=== PATIENT | female | born 1950 | race African-American/Black ===

== ENCOUNTER 2017-11-23 09:48 | Emergency (ER) | payer MEDICARE ==
[~2017-11-23] VITALS: Ht 161.3 cm; Wt 72.1 kg
[~2017-11-23 09:48] MED LIST: CLOTRIMAZOLE15 GM TOPIC; DEPAKOTE250 MG PO; DEPAKOTE500 MG PO; HYDROCORTISO1 APPLIC TOPIC; NORCO 5-325 TA1 EACH PO
[2017-11-23 10:10] VITALS: BP 148/79
[2017-11-23] MEDS ORDERED: NORCO 5-325 TA1 EACH ORAL (10:10)
[2017-11-23 10:37] VITALS: BP 148/79
--- NOTE | 2017-11-23 11:26 | Emergency Room Report ---
History of Present Illness General Chief Complaint: Back Pain-No Injury Source: Patient, Medical Record Present Illness HPI Patient reports that she had a slip and fall in the shower about 7 days ago she has had continued discomfort to the left lower back area she reports that she has had previous sciatica Is on chronic pain medication however was not able to see her pain management physician Denies any focal deficit patient ambulate with a walker and this is a usual presentation Denies any abdominal pain denies any neuropathy Denies any bowel or urinary incontinence Allergies: Coded Allergies: TETRACYCLINE (Verified Allergy, Unknown, 05/09/08) Patient History Past Medical History: see triage record Pertinent Family History: none Reviewed Nursing Documentation: PMH: Agreed; PSxH: Agreed Nursing Documentation-PMH Past Medical History: No History, Except For Hx Cardiac Problems: No - [place] Hx Hypertension: Yes Hx Asthma: Yes Hx Diabetes: Yes Hx Neurological Problems: Yes Hx Seizures: Yes Review of Systems All Other Systems: negative except mentioned in HPI Physical Exam Vital Signs Date Time Temp Pulse Resp B/P (MAP) Pulse Ox O2 Delivery O2 Flow Rate FiO2 11/23/17 09:52 98.4 72 16 148/79 96 Room Air 98.4 Sp02 EP Interpretation: reviewed, normal General Appearance: well appearing, no apparent distress Head: normocephalic, atraumatic Eyes: bilateral eye PERRL, bilateral eye EOMI ENT: hearing grossly normal, normal pharynx Neck: full range of motion, supple Respiratory: lungs clear Cardiovascular #1: regular rate, rhythm Gastrointestinal: non tender, soft Musculoskeletal: other - Patient has discomfort on palpation of the left posterior superior iliac crest midline is nontender no focal deficit, Neurologic: alert, oriented x3, responsive Skin: normal color, no rash Lymphatic: no adenopathy Medical Decision Making Diagnostic Impression: Primary Impression: Back pain ER Course Multiple differentials considered Patient at this time feels that she does not require imaging Patient was asking regarding prescription for home Given the lack of any neurological deficits I feel this is appropriate initial attempt and patient will be discharged for close follow-up Last Vital Signs Date Time Temp Pulse Resp B/P (MAP) Pulse Ox O2 Delivery O2 Flow Rate FiO2 11/23/17 10:37 98.4 16 148/79 96 Room Air 98.4 11/23/17 09:52 72 Status: improved Disposition: HOME, SELF-CARE Condition: Stable Scripts Hydrocodone Bit/Acetaminophen 5-325* (NORCO 5-325*) 1 Each Tablet 1 TAB ORAL Q8HR PRN for For Pain, #10 TAB 0 Refills Prov: Kaykay Fletcher DO 11/23/17 Referrals: NON PHYSICIAN (PCP) Patient Instructions: Sciatica, Back Pain, Adult Additional Instructions: Patient is provided with the discharge instructions notified to follow up with primary doctor in the next 2-3 days otherwise return to the er with any worsening symptoms. Please note that this report is being documented using marshallindex technology. This can lead to erroneous entry secondary to incorrect interpretation by the dictating instrument. Kaykay Fletcher DO Nov 23, 2017 11:25
== END 2017-11-23 10:37 | disposition home or self-care (01) ==
LOC: EMR 10:15
DX: M54.5 Low back pain (principal); I10 Essential (primary) hypertension; E11.9 Type 2 diabetes mellitus without complications; J45.909 Unspecified asthma, uncomplicated; I25.2 Old myocardial infarction
CPT/HCPCS: 99282

== ENCOUNTER 2017-12-20 14:53 | Emergency (ER) | payer MEDICARE ==
[~2017-12-20] VITALS: Ht 160 cm; Wt 74.4 kg
[~2017-12-20 14:53] MED LIST changes: +NORCO 5-325 TA1 EACH ORAL
[2017-12-20] MEDS ORDERED: Ketorolac 30mg Inj IM ONE (16:15)
[2017-12-20 16:45] LABS: ANION GAP 9 mmol/L (5-15); BLOOD UREA NITROGEN 20 mg/dL (7-18); CALCIUM 9.2 MG/DL (8.5-10.1); CARBON DIOXIDE 29 MMOL/L (21-32); CHLORIDE 105 MMOL/L (98-107); CREATININE 1.1 MG/DL (0.55-1.30); POTASSIUM 4.1 MMOL/L (3.5-5.1); SODIUM 142 MMOL/L (136-145)
[2017-12-20 16:48] LABS: BASOPHILS % (AUTO) 0.9 % (0.0-2.0); EOSINOPHILS % (AUTO) 0.5 % (0.0-3.0); HEMOGLOBIN 12.8 G/DL (12.0-16.0); LYMPHOCYTES % (AUTO) 25.7 % (20.0-45.0); MEAN CORPUSCULAR VOLUME 82 FL (80-99); MONOCYTES % (AUTO) 3.7 % (1.0-10.0); NEUTROPHILS % (AUTO) 69.2 % (45.0-75.0); PLATELET COUNT 314 K/UL (150-450); RED BLOOD COUNT 4.63 M/UL (4.20-5.40); RED CELL DISTRIBUTION WIDTH 12.7 % (11.6-14.8); WHITE BLOOD COUNT 10.6 K/UL (4.8-10.8)
[2017-12-20 16:51] LABS: ALANINE AMINOTRANSFERASE 18 U/L (12-78); ALBUMIN 3.7 G/DL (3.4-5.0); ALBUMIN/GLOBULIN RATIO 0.7 (1.0-2.7); ALKALINE PHOSPHATASE 84 U/L (46-116); ASPARTATE AMINO TRANSFERASE 22 U/L (15-37); BILIRUBIN,TOTAL 0.3 MG/DL (0.2-1.0)
[2017-12-20 17:03] LABS: CKMB 2.7 NG/ML (0.0-3.6)
[2017-12-20] MEDS ORDERED: Bacitracin Oint UD TOPIC ONE (17:30)
--- NOTE | 2017-12-20 17:31 | Emergency Room Report ---
History of Present Illness General Chief Complaint: Back Injury Source: Patient Present Illness HPI 67-year-old female presents to the emergency department complaining of exacerbation of her chronic back pain that she reports is 10 out of 10 in severity with radiation down the left leg. Patient states that her pain was exacerbated upon falling several days ago where she landed on her anterior knees and shins and sustained a abrasion to the left anterior bloom. Patient also reports that she believes she's had 2 seizures recently one being this morning. Patient reports that she feels tenderness where she made better tongue. Patient states that she is currently taking some tramadol with no relief of her symptoms. She states that she takes Depakote twice a day dentures seizures. She reports that she had some dizziness 2 days ago but denies dizziness today. Denies numbness tingling or loss of sensation or gross motor movements of the extremities, incontinence of bowel or bladder. Denies CP , Palpitations, AMS, Changes in Vision, weakness or a sudden severe headache. Allergies: Coded Allergies: TETRACYCLINE (Verified Allergy, Unknown, 05/09/08) Patient History Past Medical History: see triage record, seizures, other - chronic back pain with bilateral sciatica Past Surgical History: none Pertinent Family History: none Now: No Reviewed Nursing Documentation: PMH: Agreed; PSxH: Agreed Nursing Documentation-PMH Past Medical History: No History, Except For Hx Cardiac Problems: No - [place] Hx Hypertension: Yes Hx Pacemaker: No Hx Asthma: Yes Hx COPD: No Hx Diabetes: No Hx Cancer: No Hx Gastrointestinal Problems: No Hx Dialysis: No History Of Psychiatric Problem: Yes - Anxiety Hx Neurological Problems: No Hx Cerebrovascular Accident: Yes - Last Seizure: 2 Days ago Hx Seizures: Yes Review of Systems All Other Systems: negative except mentioned in HPI Physical Exam Vital Signs Date Time Temp Pulse Resp B/P (MAP) Pulse Ox O2 Delivery O2 Flow Rate FiO2 12/20/17 15:02 98.4 67 14 145/81 99 Room Air Sp02 EP Interpretation: reviewed, normal General Appearance: no apparent distress, alert, GCS 15, non-toxic Head: normocephalic, atraumatic Eyes: bilateral eye normal inspection, bilateral eye PERRL, bilateral eye EOMI ENT: hearing grossly normal, normal voice, other - no visible oral trauma. Neck: full range of motion, no bony tend Respiratory: chest non-tender, lungs clear, normal breath sounds, speaking full sentences Cardiovascular #1: regular rate, rhythm Gastrointestinal: non tender, soft Rectal: deferred Genitourinary: normal inspection, no CVA tenderness Musculoskeletal: back normal, gait/station normal, normal range of motion, tender - Mild Tenderness to palpation to paraspinal muscles of the lower back without midline tenderness. Neurologic: alert, oriented x3, responsive, motor strength/tone normal, sensory intact, normal gait, speech normal, other - no nystagmus., normal motor strength/tone, grossly normal Psychiatric: judgement/insight normal Skin: normal color, no rash, warm/dry, well hydrated, abrasions - healing abrasion anterior left bloom, no signs of infection Medical Decision Making PA Attestation Dr. Aguila is my supervising Physician whom patient management has been discussed with. Diagnostic Impression: Primary Impression: Acute exacerbation of chronic low back pain Additional Impressions: History of seizure Contusion Qualified Codes: S80.12XA - Contusion of left lower leg, initial encounter Abrasion ER Course 67-year-old female presents to the emergency department complaining of exacerbation of her chronic back pain that she reports is 10 out of 10 in severity with radiation down the left leg. Patient states that her pain was exacerbated upon falling several days ago where she landed on her anterior knees and shins and sustained a abrasion to the left anterior bloom. Patient also reports that she believes she's had 2 seizures recently one being this morning. Patient reports that she feels tenderness where she made better tongue. Patient states that she is currently taking some tramadol with no relief of her symptoms. She states that she takes Depakote twice a day dentures seizures. She reports that she had some dizziness 2 days ago but denies dizziness today. Denies numbness tingling or loss of sensation or gross motor movements of the extremities, incontinence of bowel or bladder. Denies CP , Palpitations, AMS, Changes in Vision, weakness or a sudden severe headache. Ddx considered: epidural abscess, fracture, sprain/strain, meningitis, spinal chord injury, sciatica, cauda equina, seizure, cardiac ideology just to name a few Vital signs reviewed and are WNL during ED visit. Pt. is afebrile with no signs of infection No saddle anesthesia noted, Pt. denies incontinence Neurovascular is intact ROM is limited due to pain Mild Tenderness to palpation to paraspinal muscles of the lower back without midline tenderness. she is ambulatory, mild tenderness to the anterior bloom with healing abrasion no bruising noted -Pt declines imaging as she does not feel she has fractures and is worried about the cost. pt reports she walked for hours yesterday and today. ORDERS: - CBC, CMP: WNL -Depakote Level: 40 (low) -Troponin: WNL -CK: Unremarkable -EKG: sinus bradycardia no ST changes -AccuStick check INTERVENTIONS: - 20mg IM Toradol -Lidoderm Patch TP -250mg Depakote d/w patient that she needs to discontinue use of tramadol as this can lower the threshold for seizures D/W Pt. that for further pain management is it recommended to consult PCP or a Chronic Pain management doctor. A provider who can safely prescribe controlled substances with close follow up. DISCHARGE: At this time pt. is stable for d/c to home. Will provide printed patient care instructions, and any necessary prescriptions. Care plan and follow up instructions have been discussed with the patient prior to discharge. Labs Test 12/20/17 16:15 White Blood Count 10.6 K/UL (4.8-10.8) Red Blood Count 4.63 M/UL (4.20-5.40) Hemoglobin 12.8 G/DL (12.0-16.0) Hematocrit 38.0 % (37.0-47.0) Mean Corpuscular Volume 82 FL (80-99) Mean Corpuscular Hemoglobin 27.6 PG (27.0-31.0) Mean Corpuscular Hemoglobin Concent 33.7 G/DL (32.0-36.0) Red Cell Distribution Width 12.7 % (11.6-14.8) Platelet Count 314 K/UL (150-450) Mean Platelet Volume 5.8 FL (6.5-10.1) Neutrophils (%) (Auto) 69.2 % (45.0-75.0) Lymphocytes (%) (Auto) 25.7 % (20.0-45.0) Monocytes (%) (Auto) 3.7 % (1.0-10.0) Eosinophils (%) (Auto) 0.5 % (0.0-3.0) Basophils (%) (Auto) 0.9 % (0.0-2.0) Sodium Level 142 MMOL/L (136-145) Potassium Level 4.1 MMOL/L (3.5-5.1) Chloride Level 105 MMOL/L (98-107) Carbon Dioxide Level 29 MMOL/L (21-32) Anion Gap 9 mmol/L (5-15) Blood Urea Nitrogen 20 mg/dL (7-18) Creatinine 1.1 MG/DL (0.55-1.30) Estimat Glomerular Filtration Rate > 60 mL/min (>60) Glucose Level 87 MG/DL (74-106) Calcium Level 9.2 MG/DL (8.5-10.1) Total Bilirubin 0.3 MG/DL (0.2-1.0) Aspartate Amino Transf (AST/SGOT) 22 U/L (15-37) Alanine Aminotransferase (ALT/SGPT) 18 U/L (12-78) Alkaline Phosphatase 84 U/L (46-116) Total Creatine Kinase 232 U/L (26-308) Creatine Kinase MB 2.7 NG/ML (0.0-3.6) Creatine Kinase MB Relative Index 1.1 Troponin I 0.000 ng/mL (0.000-0.056) Total Protein 8.9 G/DL (6.4-8.2) Albumin 3.7 G/DL (3.4-5.0) Globulin 5.2 g/dL Albumin/Globulin Ratio 0.7 (1.0-2.7) Valproic Acid (Depakene) Level 40 MCG/ML (50-100) EKG Diagnostic Results EP Interpretation: Dr. Aguila Rate: bradycardiac - 53 Rhythm: NSR ST Segments: no acute changes ASA given to the pt in ED: No PA Scribe Text This Interpretation was scribed by EMILIANA Bar. Last Vital Signs Date Time Temp Pulse Resp B/P (MAP) Pulse Ox O2 Delivery O2 Flow Rate FiO2 12/20/17 15:02 98.4 67 14 145/81 99 Room Air Disposition: HOME, SELF-CARE Condition: Stable Scripts Acetaminophen* (TYLENOL EXTRA STRENGTH*) 500 Mg Tablet 500 MG ORAL Q6H, #20 TAB 0 Refills Prov: Chantal Bar 12/20/17 Bacitracin/Polymyxin B Sulfate (BACITRACIN-POLYMYXIN OINTMENT) 28.35 Gm Oint...g. 1 APPLIC TP BID, #28.3 GM Prov: Chantal Bar 12/20/17 Methocarbamol* (ROBAXIN-750*) 750 Mg Tablet 750 MG PO QID for 7 Days, #28 TAB 0 Refills Prov: Chantal Bar 12/20/17 Referrals: Kyle Simon MD (PCP) Patient Instructions: Abrasion, Puyy-aw-Anty, Back Pain, Adult, Contusion, Easy -to-Read Additional Instructions: Take medications as directed. Follow up with a Primary Care Provider in 3-5 days, even if your symptoms have resolved. --Please review list of primary care clinics, if you do not already have a primary care provider Return sooner to ED if new symptoms occur, or current symptoms become worse. Do not drink alcohol, drive, or operate heavy machinery while taking Robaxin ( Muscle Relaxers) as this may cause drowsiness. - Please note that this Emergency Department Report was dictated using Intoloopcurriculum coach technology software, occasionally this can lead to erroneous entry secondary to interpretation by the dictation equipment. Chantal Bar Dec 20, 2017 17:31
[2017-12-20] MEDS ORDERED: BACITRACIN-P28.35 GM TP (17:33)
[2017-12-20] MEDS ORDERED: ROBAXIN-750750 MG PO (17:33)
[2017-12-20] MEDS ORDERED: TYLENOL EXTRA500 MG ORAL (17:33)
[2017-12-20 17:43] VITALS: BP 135/79
[2017-12-20 17:47] VITALS: BP 135/79
--- NOTE | 2017-12-22 16:39 | Cardiology Report ---
APPROVED REPORT EKG Measurement Heart [id number] Sinus bradycardia Possible Left atrial enlargement Left ventricular hypertrophy Nonspecific T wave abnormality Abnormal ECG
== END 2017-12-20 17:47 | disposition home or self-care (01) ==
LOC: EMR 16:49
DX: G89.29 Other chronic pain (principal); M54.9 Dorsalgia, unspecified; I10 Essential (primary) hypertension; R56.9 Unspecified convulsions; Z86.73 Personal history of transient ischemic attack (TIA), and cerebral infarction without residual deficits; S80.12XA Contusion of left lower leg, initial encounter; W18.30XA Fall on same level, unspecified, initial encounter; Y93.9 Activity, unspecified; Y92.9 Unspecified place or not applicable; Y99.9 Unspecified external cause status
CPT/HCPCS: 36415; 80053; 80164; 82550; 82553; 82962; 84484; 85025; 93005; 96372; 99284; J1885

== ENCOUNTER → 2018-02-15 | Emergency (ER) | payer MEDICARE ==
[~2018-02-15] VITALS: Ht 160 cm; Wt 72.6 kg
[~2018-02-15] MED LIST changes: +BACITRACIN-P28.35 GM TP; +ROBAXIN-750750 MG PO; +TYLENOL EXTRA500 MG ORAL; +VALPROIC ACID250 MG PO
[2018-02-15 14:00] VITALS: BP 165/88
--- NOTE | 2018-02-15 14:00 | NUR ---
ED Nurse Note: pt walked in ED for medication refill. Pt states she takes Valporic Acid 250mg po bid. PA at the bedside, pt aa&ox4, gcs=15, skin warm and dry, resp even and unlabored, ambulatory. pt given sandwich and drink , verified with PA prior to providing pt meal.
--- NOTE | 2018-02-15 14:12 | Emergency Room Report ---
History of Present Illness General Chief Complaint: Medication Refill Source: Medical Record Present Illness HPI 67-year-old female presents to the emergency department complaining of needing medication refill. Has been out of her medication for 2 days. Patient reports that she has been taking valproic acid twice a day for many years for history of seizures. Patient also reports history of sciatica. She denies recent trauma or fall but she is also requesting some medications for this as well. Patient sates that she fell several years ago and has had her symptoms ever since and she is evaluated regularly with her pain management doctor. Last seizure 3 years ago. Denies numbness tingling or loss of sensation or gross motor movements of the extremities, incontinence of bowel or bladder. Denies CP , Palpitations, LOC, AMS, dizziness, Changes in Vision, weakness or a sudden severe headache. Denies pain at this time. Allergies: Coded Allergies: TETRACYCLINE (Verified Allergy, Unknown, 05/09/08) Patient History Past Medical History: see triage record Past Surgical History: none Pertinent Family History: none Now: No Reviewed Nursing Documentation: PMH: Agreed; PSxH: Agreed Nursing Documentation-PMH Hx Cardiac Problems: No - [place] Hx Hypertension: Yes Hx Pacemaker: No Hx Asthma: Yes Hx COPD: No Hx Diabetes: No Hx Cancer: No Hx Gastrointestinal Problems: No Hx Dialysis: No Hx Neurological Problems: No Hx Cerebrovascular Accident: Yes - Last Seizure: 2 Days ago Hx Seizures: Yes Review of Systems All Other Systems: negative except mentioned in HPI Physical Exam Vital Signs Date Time Temp Pulse Resp B/P (MAP) Pulse Ox O2 Delivery O2 Flow Rate FiO2 02/15/18 13:54 98.4 60 16 165/88 96 Room Air Sp02 EP Interpretation: reviewed, normal General Appearance: no apparent distress, alert, GCS 15, non-toxic Head: normocephalic, atraumatic Eyes: bilateral eye normal inspection, bilateral eye PERRL ENT: hearing grossly normal, normal voice Neck: full range of motion Respiratory: lungs clear, normal breath sounds, speaking full sentences Cardiovascular #1: regular rate, rhythm Musculoskeletal: back normal, gait/station normal, normal range of motion, non- tender Neurologic: alert, oriented x3, responsive, motor strength/tone normal, sensory intact, speech normal, grossly normal Psychiatric: judgement/insight normal Skin: normal color, no rash, warm/dry, well hydrated Lymphatic: no adenopathy Medical Decision Making PA Attestation Dr. Fletcher is my supervising Physician whom patient management has been discussed with. Diagnostic Impression: Primary Impression: Encounter for medication refill Additional Impression: Seizure disorder ER Course 67-year-old female presents to the emergency department complaining of needing medication refill. Has been out of her medication for 2 days. Patient reports that she has been taking valproic acid twice a day for many years for history of seizures. Patient also reports history of sciatica. She denies recent trauma or fall but she is also requesting some medications for this as well. Patient sates that she fell several years ago and has had her symptoms ever since and she is evaluated regularly with her pain management doctor. Last seizure 3 years ago. Denies numbness tingling or loss of sensation or gross motor movements of the extremities, incontinence of bowel or bladder. Denies CP , Palpitations, LOC, AMS, dizziness, Changes in Vision, weakness or a sudden severe headache. Denies pain at this time. Ddx considered but are not limited to: acute psychosis, danger to self or others , drug seeking, OD, urgent need for medication refill request, non -urgent medication refill request just to name a few. Vital signs: are WNL, pt. is afebrile H&PE are most consistent with non- urgent need for medication refill. Pt. does not have evidence to suggest high probability of danger to self or others. pt. is Alert, Oriented, and able to make decisions. ORDERS: none required at this time, the diagnosis is clinical ED INTERVENTIONS: None required at this time. -Patient is given multiple resources for nonurgent psychiatric medication management such as urgent care. Discussed with patient that this is a medication that is not normally prescribed by an emergency department and therefore medication refill and management needs to be performed by an appropriate provider. DISCHARGE: At this time pt. is stable for d/c to home. Will provide printed patient care instructions, and any necessary prescriptions. Care plan and follow up instructions have been discussed with the patient prior to discharge. Last Vital Signs Date Time Temp Pulse Resp B/P (MAP) Pulse Ox O2 Delivery O2 Flow Rate FiO2 02/15/18 13:54 98.4 60 16 165/88 96 Room Air Disposition: HOME, SELF-CARE Condition: Stable Scripts Methocarbamol* (ROBAXIN-750*) 750 Mg Tablet 750 MG PO TID for 7 Days, #21 TAB 0 Refills Prov: Chantal Bar 02/15/18 Valproic Acid (VALPROIC ACID) 250 Mg Capsule 250 MG PO Q12HR, #30 CAP Prov: Chantal Bar 02/15/18 Patient Instructions: Medicine Refill at the Emergency Department Additional Instructions: Take medications as directed. Follow up with a Primary Care Provider in 3-5 days, even if your symptoms have resolved. --Please review list of primary care clinics, if you do not already have a primary care provider Return sooner to ED if new symptoms occur, or current symptoms become worse. Do not drink alcohol, drive, or operate heavy machinery while taking Robaxin as this may cause drowsiness. - Please note that this Emergency Department Report was dictated using Vubiquityclient service associate technology software, occasionally this can lead to erroneous entry secondary to interpretation by the dictation equipment. Chantal Bar Feb 15, 2018 14:12
[2018-02-15 14:20] VITALS: BP 156/88
--- NOTE | 2018-02-15 14:21 | NUR ---
ED Nurse Note: pt discharge instruction provided w/ prescription, pt education done via discussion and handout, pt advised to follow up w/ pcp 2-3days, pt verbalized understanding and agrees with plan, pt wrist band removed, pt ambulatory w/ steady gait, vss, all belongings left w/ pt.
== END | disposition home or self-care (01) ==
LOC: EMR 14:14
DX: Z76.0 Encounter for issue of repeat prescription (principal); G40.909 Epilepsy, unspecified, not intractable, without status epilepticus; I10 Essential (primary) hypertension; I25.2 Old myocardial infarction; Z86.73 Personal history of transient ischemic attack (TIA), and cerebral infarction without residual deficits; Z88.1 Allergy status to other antibiotic agents
CPT/HCPCS: 99282

== ENCOUNTER 2018-05-03 11:00 | Emergency (ER) | payer MEDICARE ==
[~2018-05-03] VITALS: Ht 160 cm; Wt 75.7 kg
--- NOTE | 2018-05-03 11:20 | NUR ---
ED Nurse Note: Patient walked into Ed c/o sciatic nerve pain on the left lower posterior side for 1 week. patient is alert and awake x4 in no acute distress.
[2018-05-03] MEDS ORDERED: Methocarbamol 500mg tab ORAL ONE (11:45)
[2018-05-03] MEDS ORDERED: Ketorolac 30mg Inj IM ONE (11:45)
--- NOTE | 2018-05-03 11:51 | NUR ---
ED Nurse Note: RN administered Toradol IM injection to right deltoid muscle per patient's request. RN attempted to administer it to deep muscle, but patient states 'I always get it in my arm'. Per patient, patient received the injection previously. Tolerated the procedure well.
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
--- NOTE | 2018-05-03 12:20 | NUR ---
ED Nurse Note: notified Dr. Somers that patient said "I don't have to go now" for urine sample.
[2018-05-03] MEDS ORDERED: LIDOCAINE700 M1 TP (13:02)
[2018-05-03] MEDS ORDERED: TRAMADOL HCL50 MG ORAL (13:02)
[2018-05-03] MEDS ORDERED: ROBAXIN500 MG PO (13:02)
[2018-05-03] MEDS ORDERED: IBUPROFEN600 MG ORAL (13:02)
[2018-05-03] MEDS ORDERED: TYLENOL325 MG ORAL (13:04)
[2018-05-03 13:20] VITALS: BP 130/76
[2018-05-03 13:21] VITALS: BP 135/75
--- NOTE | 2018-05-03 13:21 | NUR ---
ER DISCHARGE NOTE: Patient is cleared to be discharged per ERMD, pt is aox4, on room air, with stable vital signs. pt was given dc and prescription instructions, pt was able to verbalize understanding, pt id band removed without complications. pt is able to ambulate with steady gait. pt took all belongings. ERMD ok to dc patient without ua.
== END 2018-05-03 13:20 | disposition home or self-care (01) ==
LOC: EMR 11:50
DX: M54.41 Lumbago with sciatica, right side (principal); G89.29 Other chronic pain; I25.2 Old myocardial infarction; J45.909 Unspecified asthma, uncomplicated
CPT/HCPCS: 96372; 99283; J1885

== ENCOUNTER 2018-11-24 11:20 | Emergency (ER) | payer MEDICARE ==
[~2018-11-24] VITALS: Ht 160 cm; Wt 74.4 kg
[~2018-11-24 11:20] MED LIST changes: +IBUPROFEN600 MG ORAL; +LIDOCAINE700 M1 TP; +ROBAXIN500 MG PO; +TRAMADOL HCL50 MG ORAL; +TYLENOL325 MG ORAL
[2018-11-24 11:53] VITALS: BP 157/80
--- NOTE | 2018-11-24 11:53 | NUR ---
ED Nurse Note: PT FROM HOME WALKED IN S/P FALL. PT SLIPPED AND FELL ON HER BATH TUB HITTING HER HEAD AND BACK. PT ALSO C/O RIGHT SIDE BODY PAIN 09/15. AAO X4, AMBULATORY WITH NON LABORED BREATHING. NO APPARENT HEAD BUMP OR BLEEDING. DENIES DIZZINESS OR N/V.
[2018-11-24] MEDS ORDERED: Ketorolac 60mg Inj IM ONE (12:15)
[2018-11-24] MEDS ORDERED: HYDROcodone/Acetamin 10/325 tab ORAL ONE (12:15)
[2018-11-24] MEDS ORDERED: NORCO 7.5-3251 EACH ORAL (12:24)
[2018-11-24 12:40] VITALS: BP 158/79
--- NOTE | 2018-11-24 12:40 | NUR ---
ER DISCHARGE NOTE: Patient is cleared to be discharged per ERMD, pt is aox4, on room air, with stable vital signs. pt was given dc and prescription instructions, pt was able to verbalize understanding, pt id band removed. pt is able to ambulate with steady gait. pt took all belongings.
--- NOTE | 2018-11-24 14:08 | Emergency Room Report ---
History of Present Illness General Chief Complaint: Multiple Trauma/Fall Source: Patient, Medical Record Present Illness HPI Patient presents with complaints of right low back pain head injury reports that earlier patient had a slip and fall in the bathtub She has already been dealing with sciatic problems and feels that the fall has exacerbated her pain Denies any lapse of consciousness denies any chest pain denies any vomiting or diarrhea patient reports that she was under the care of pain management However was trying to get off the medication she does not have any medicine at this time and after the fall she was concerned and came to the ER denies any focal weakness Allergies: Coded Allergies: TETRACYCLINE (Verified Allergy, Unknown, 05/09/08) Patient History Past Medical History: see triage record Last Menstrual Period: N/A Reviewed Nursing Documentation: PMH: Agreed; PSxH: Agreed Nursing Documentation-PMH Hx Cardiac Problems: No - [place] Hx Hypertension: Yes Hx Pacemaker: No Hx Asthma: Yes Hx COPD: No Hx Diabetes: No Hx Cancer: No Hx Gastrointestinal Problems: No Hx Dialysis: No Hx Neurological Problems: No Hx Cerebrovascular Accident: Yes Hx Seizures: Yes Review of Systems All Other Systems: negative except mentioned in HPI Physical Exam Vital Signs Date Time Temp Pulse Resp B/P (MAP) Pulse Ox O2 Delivery O2 Flow Rate FiO2 11/24/18 11:43 98.1 66 18 160/90 (113) 94 Room Air Sp02 EP Interpretation: reviewed, normal General Appearance: well appearing, no apparent distress Head: normocephalic, atraumatic Eyes: bilateral eye PERRL, bilateral eye EOMI ENT: hearing grossly normal, normal pharynx, TMs + canals normal, uvula midline Neck: full range of motion, supple, no meningismus, no bony tend Respiratory: lungs clear, normal breath sounds, no rhonchi, no respiratory distress, no retraction, no accessory muscle use Cardiovascular #1: normal peripheral pulses, regular rate, rhythm, no edema, no gallop, no JVD, no murmur Gastrointestinal: normal bowel sounds, non tender, soft, no mass, no organomegaly, non-distended, no guarding, no hernia, no pulsatile mass, no rebound Genitourinary: no CVA tenderness Musculoskeletal: other - Some discomfort palpable to the right posterior superior iliac crest no midline tenderness or step-offs Neurologic: oriented x3, responsive, investment officer III-XII nml as tested, motor strength/ tone normal, sensory intact Psychiatric: mood/affect normal Skin: no rash Lymphatic: normal inspection, no adenopathy Medical Decision Making Diagnostic Impression: Primary Impression: Back pain Additional Impression: Multiple injuries due to trauma ER Course Patient has some significant multiple comorbidities at this time given the pain and presentation she was provided with acute medication she does feel significantly improved patient does not meet criteria for any other emergent imaging Stable for close follow-up Last Vital Signs Date Time Temp Pulse Resp B/P (MAP) Pulse Ox O2 Delivery O2 Flow Rate FiO2 11/24/18 12:40 97.9 82 15 158/79 98 Room Air Status: improved Disposition: HOME, SELF-CARE Condition: Improved Scripts Hydrocodone Bit/Acetaminophen 7.5-325* (NORCO 7.5-325*) 1 Each Tablet 1 TAB ORAL Q8HR PRN for For Pain, #10 TAB 0 Refills Prov: Kaykay Fletcher DO 11/24/18 Referrals: NON PHYSICIAN (PCP) Patient Instructions: Contusion, [id number], Sciatica, [id number] Additional Instructions: Patient is provided with the discharge instructions notified to follow up with primary doctor in the next 2-3 days otherwise return to the er with any worsening symptoms. Please note that this report is being documented using [employer] technology. This can lead to erroneous entry secondary to incorrect interpretation by the dictating instrument. Kaykay Fletcher DO Nov 24, 2018 14:08
== END 2018-11-24 12:40 | disposition home or self-care (01) ==
LOC: EMR 11:50
DX: M54.5 Low back pain (principal); T14.90XA Injury, unspecified, initial encounter; Z88.1 Allergy status to other antibiotic agents; I25.2 Old myocardial infarction; I10 Essential (primary) hypertension; J45.909 Unspecified asthma, uncomplicated; Z86.73 Personal history of transient ischemic attack (TIA), and cerebral infarction without residual deficits; W18.2XXA Fall in (into) shower or empty bathtub, initial encounter; Y92.9 Unspecified place or not applicable
CPT/HCPCS: 96372; 99283

== ENCOUNTER 2019-02-24 08:30 | Emergency (ER) | payer MEDICARE ==
[~2019-02-24] VITALS: Ht 160 cm; Wt 73.0 kg
[~2019-02-24 08:30] MED LIST changes: +NORCO 7.5-3251 EACH ORAL
[2019-02-24 08:43] VITALS: BP 155/86
--- NOTE | 2019-02-24 08:43 | NUR ---
ED Nurse Note: Pt ambulated to ED with c/o LT lowback pain that radiates to LT leg started yesterday. Pt is AOx4, VSS, on RA. Placed on bed.
[2019-02-24] MEDS ORDERED: LIDODERM700 M1 TOPIC (09:12)
[2019-02-24] MEDS ORDERED: Ketorolac 30mg Inj IM ONE (09:30)
--- NOTE | 2019-02-24 09:32 | NUR ---
ER DISCHARGE NOTE: Pt is cleared to be discharged per ERMD, pt is aox4, on room air, with stable vital signs. pt was given dc and prescription instructions, pt was able to verbalize understanding, pt id band removed. pt is able to ambulate with steady gait. pt took all belongings.
--- NOTE | 2019-02-24 10:10 | Emergency Room Report ---
History of Present Illness General Chief Complaint: Back Pain-No Injury Source: Patient Present Illness HPI 68-year-old female presents ED complaining of back pain. History of chronic back pain with sciatica. Radiating down the left leg. States she always has pain states she does not have pain meds at home at this time. Is asking for a few day supply. Pain is 10 out of 10, sharp. Denies bowel or bladder incontinence. Denies any leg or motor weakness. No other aggravating relieving factors. Denies any other associated symptoms Allergies: Coded Allergies: TETRACYCLINE (Verified Allergy, Unknown, 05/09/08) Patient History Past Medical History: asthma, CVA/TIA, seizures Social History: Denies: smoking, alcohol use, drug use Now: No Immunizations: UTD Reviewed Nursing Documentation: PMH: Agreed; PSxH: Agreed Nursing Documentation-PMH Past Medical History: No History, Except For Hx Cardiac Problems: No - [place] Hx Hypertension: Yes Hx Pacemaker: No Hx Asthma: Yes Hx COPD: No Hx Diabetes: No Hx Cancer: No Hx Gastrointestinal Problems: No Hx Dialysis: No Hx Neurological Problems: No Hx Cerebrovascular Accident: Yes Hx Seizures: Yes - 2019 Review of Systems All Other Systems: negative except mentioned in HPI Physical Exam Vital Signs Date Time Temp Pulse Resp B/P (MAP) Pulse Ox O2 Delivery O2 Flow Rate FiO2 02/24/19 08:35 98.1 61 16 155/86 (109) 96 Room Air Sp02 EP Interpretation: reviewed, normal General Appearance: no apparent distress, alert, GCS 15, non-toxic Head: normocephalic Eyes: bilateral eye normal inspection, bilateral eye PERRL ENT: normal ENT inspection Neck: normal inspection Respiratory: normal inspection Cardiovascular #1: normal inspection Gastrointestinal: normal inspection Rectal: deferred Genitourinary: no CVA tenderness, no vertebral tenderness Musculoskeletal: tender - Paraspinal lumbar tenderness Neurologic: alert, motor strength/tone normal, oriented x3, sensory intact, responsive, speech normal Psychiatric: normal inspection Skin: no rash Lymphatic: normal inspection Medical Decision Making Diagnostic Impression: Primary Impression: Exacerbation of chronic back pain Additional Impression: Opioid dependence Qualified Codes: F11.29 - Opioid dependence with unspecified opioid-induced disorder ER Course Hospital Course 68-year-old female presents ED complaining of lower back pain. No evidence of trauma Differential diagnoses include: pyelonephritis, kidney stone, muscle strain, Lspine fracture Clinical course Patient placed on stretcher. After initial history physical exam reveals elderly female in no acute distress. There is paraspinal lumbar tenderness on the left. 5 out of 5 strength in lower extremities. No sensory deficits. Patient does receive extensive narcotic prescriptions on a monthly basis. Patient was here 4 days ago for similar presentation. I discussed findings with the patient. We will not be providing additional narcotic medications at this time. I agreed to treat her pains with alternative methods including Toradol and Lidoderm and muscle relaxants. Patient agreed. Given Toradol and Lidoderm in ED. On reassessment symptoms improving. Safe for discharge for close outpatient follow-up. Diagnosis - exacerbation of chronic back pain , opioid dependence Stable and discharged to home with prescription for Lidoderm. Followup with PMD. Return to ED if symptoms recur or worsen Last Vital Signs Date Time Temp Pulse Resp B/P (MAP) Pulse Ox O2 Delivery O2 Flow Rate FiO2 02/24/19 09:32 98.1 65 20 145/82 100 Room Air Status: improved Disposition: HOME, SELF-CARE Condition: Stable Scripts Lidocaine Patch* (Lidoderm Patch*) 1 Each Adh..patch 1 PATCH TOPIC DAILY, #7 PATCH 0 Refills Patch(es) may remain in place for up to 12 hours in any 24-hour period. Prov: Fran Salmon MD 02/24/19 Referrals: [facility],REFERRING (PCP) Patient Instructions: Fran Cid MD Feb 24, 2019 10:10
== END 2019-02-24 09:32 | disposition home or self-care (01) ==
LOC: EMR 08:46
DX: G89.29 Other chronic pain (principal); F11.29 Opioid dependence with unspecified opioid-induced disorder; M54.5 Low back pain; I25.2 Old myocardial infarction; I10 Essential (primary) hypertension; G40.909 Epilepsy, unspecified, not intractable, without status epilepticus; Z86.73 Personal history of transient ischemic attack (TIA), and cerebral infarction without residual deficits; Z88.8 Allergy status to other drugs, medicaments and biological substances
CPT/HCPCS: 96372; 99283; J1885

== ENCOUNTER 2019-08-29 11:27 | Emergency (ER) | payer MEDICARE ==
[~2019-08-29] VITALS: Ht 160 cm; Wt 73.5 kg
[~2019-08-29 11:27] MED LIST changes: +LIDODERM700 M1 TOPIC
[2019-08-29 11:48] VITALS: BP 152/81
[2019-08-29] MEDS ORDERED: NORCO 7.5-3251 EACH ORAL (11:56)
[2019-08-29] MEDS ORDERED: LIDODERM700 M1 TOPIC (11:56)
[2019-08-29] MEDS ORDERED: Ketorolac 60mg Inj IM ONE (12:00)
--- NOTE | 2019-08-29 12:02 | Emergency Room Report ---
History of Present Illness General Chief Complaint: Back Pain-No Injury Source: Patient Present Illness HPI Disclaimer: Please note that this report is being documented using [employer] technology. This can lead to erroneous entry secondary to incorrect interpretation by the dictating instrument. HPI: 69-year-old female history of seizure disorder, chronic low back pain presented for acute on chronic low back pain. She states she had a fall 2 days ago. She trialed Aleve at home with minimal relief. Pain is in the left lower back radiating down the left leg. Arrived ambulatory with a cane. Denied head trauma. No nausea vomiting. No bowel or bladder incontinence. PMH: Back pain, seizures PSH: Reviewed Social Hx: Denies smoking drinking or illicit drug use Allergies: Coded Allergies: TETRACYCLINE (Verified Allergy, Unknown, 05/09/08) COVID-19 Screening Contact w/high risk pt: No Experienced COVID-19 symptoms?: No COVID-19 Testing performed SOCCER COACH: No Patient History Reviewed Nursing Documentation: PMH: Agreed; PSxH: Agreed Nursing Documentation-PMH Hx Cardiac Problems: No - [place] Hx Hypertension: Yes Hx Pacemaker: No Hx Asthma: Yes Hx COPD: No Hx Diabetes: No Hx Cancer: No Hx Gastrointestinal Problems: No Hx Dialysis: No Hx Neurological Problems: No Hx Cerebrovascular Accident: Yes Hx Seizures: Yes - 2019 Review of Systems All Other Systems: negative except mentioned in HPI Physical Exam Vital Signs Date Time Temp Pulse Resp B/P (MAP) Pulse Ox O2 Delivery O2 Flow Rate FiO2 08/29/19 11:36 98.4 64 19 151/88 (109) 95 Room Air Sp02 EP Interpretation: reviewed, normal General Appearance: well appearing, no apparent distress Head: normocephalic, atraumatic Eyes: bilateral eye PERRL, bilateral eye EOMI ENT: hearing grossly normal, moist mucus membranes Neck: full range of motion, supple Respiratory: lungs clear, normal breath sounds, no rhonchi, no respiratory distress, no retraction, no wheezing Cardiovascular #1: normal peripheral pulses, regular rate, rhythm, no murmur Gastrointestinal: non tender, soft, non-distended, no guarding Musculoskeletal: other - Patient ambulatory with a steady gait, left lateral low back tenderness. No midline tenderness step-off or deformity of the spine Neurologic: alert, oriented x3, no focal defects Skin: normal color, warm/dry Medical Decision Making Diagnostic Impression: Primary Impression: Back pain ER Course Differential diagnosis included but not limited to back contusion, recurrent sciatica, arthritis, lumbar disc disease to name a few. Less likely cauda equina or fracture the lumbar spine. Patient ambulatory. In the ER she was given Toradol and a lidocaine patch. I did review her prescription history and she has not received narcotics in over a year and a half. So they will provide a small prescription for pain control over the next few days in addition to continued anti-inflammatories and lidocaine patches. Stable for discharge with return precautions Last Vital Signs Date Time Temp Pulse Resp B/P (MAP) Pulse Ox O2 Delivery O2 Flow Rate FiO2 08/29/19 11:48 98.4 79 19 152/81 96 Room Air Disposition: HOME, SELF-CARE Condition: Stable Scripts Lidocaine Patch* (Lidoderm Patch*) 1 Each Adh..patch 1 PATCH TOPIC DAILY, #7 PATCH 0 Refills Patch(es) may remain in place for up to 12 hours in any 24-hour period. Prov: Valentin Gusman M.D. 08/29/19 Hydrocodone Bit/Acetaminophen 7.5-325* (NORCO 7.5-325*) 1 Each Tablet 1 TAB ORAL Q8HR PRN for For Pain, #10 TAB 0 Refills Prov: Valentin Gusman M.D. 08/29/19 Patient Instructions: Sciatica, Back Pain, Adult Additional Instructions: Patient is instructed to follow-up with her primary care doctor, primary care clinic or county clinic in 1 to 2 days. Patient instructed to return for any worsening symptoms or concerns. Disclaimer: Please note that this report is being documented using [employer] technology. This can lead to erroneous entry secondary to incorrect interpretation by the dictating instrument. Valentin Gusman M.D. Aug 29, 2019 12:02
== END 2019-08-29 12:05 | disposition home or self-care (01) ==
LOC: EMR 12:00
DX: M54.5 Low back pain (principal); I10 Essential (primary) hypertension; J45.909 Unspecified asthma, uncomplicated; I25.2 Old myocardial infarction; R56.9 Unspecified convulsions; Z86.73 Personal history of transient ischemic attack (TIA), and cerebral infarction without residual deficits; Z88.1 Allergy status to other antibiotic agents
CPT/HCPCS: 96372; 99283

== ENCOUNTER 2019-09-24 08:32 | Emergency (ER) | payer MEDICARE ==
[~2019-09-24] VITALS: Ht 160 cm; Wt 73.5 kg
--- NOTE | 2019-09-24 08:37 | NUR ---
ED Nurse Note: Called patient. Patient not in waiting room.
[2019-09-24] MEDS ORDERED: NORCO 7.5-3251 EACH ORAL (08:56)
[2019-09-24] MEDS ORDERED: LIDODERM700 M1 TOPIC (08:56)
[2019-09-24] MEDS ORDERED: HYDROcodone/Acetamin 7.5/325 tab ORAL ONE (09:00)
--- NOTE | 2019-09-24 09:00 | NUR ---
ED Nurse Note: Pt ambulated to ED assisted with cane d/t LT lower back pain; reports no injury; reports no loss of bladder or bowel control. Pt is A&Ox4, calm and cooperative, VSS, on RA, afebrile on triage. Placed on bed.
--- NOTE | 2019-09-24 09:00 | Emergency Room Report ---
History of Present Illness General Chief Complaint: Back Pain-No Injury Source: Patient, Medical Record Present Illness HPI Patient is a 69-year-old female past medical history of chronic back pain and sciatica well-known to this emergency department who presents to the ER complaining of back pain. She states that it is her chronic back pain and she has run out of medications. She denies any injuries. She denies any fever or chills. She denies any history of IV drug use. She denies any focal weakness. She denies any paresthesias. Patient states that the pain is on her lower back and radiates down the back of her left leg. Patient has a paper from her insurance that has approved her for [place] 7.5/325 mg. She is also requesting lidocaine patches. Patient denies any dysuria or hematuria. She denies any abdominal pain nausea or vomiting. She denies any changes to her bowel or bladder habits. She states she is able to ambulate but that it hurts. Allergies: Coded Allergies: TETRACYCLINE (Verified Allergy, Unknown, 05/09/08) COVID-19 Screening Contact w/high risk pt: No Experienced COVID-19 symptoms?: No COVID-19 Testing performed HOSPITAL SECURITY OFFICER: Yes - PENDING result COVID-19 Screening: Negative COVID-19 COVID-19 Testing Source: SENIOR EMBEDDED SOFTWARE ENGINEER Patient History Reviewed Nursing Documentation: PMH: Agreed; PSxH: Agreed Nursing Documentation-PMH Past Medical History: No History, Except For Hx Cardiac Problems: No - [place] Hx Hypertension: Yes Hx Pacemaker: No Hx Asthma: Yes Hx COPD: No Hx Diabetes: No Hx Cancer: No Hx Gastrointestinal Problems: No Hx Dialysis: No Hx Neurological Problems: No Hx Cerebrovascular Accident: Yes Hx Seizures: Yes - 2019 Review of Systems All Other Systems: negative except mentioned in HPI Physical Exam Vital Signs Date Time Temp Pulse Resp B/P (MAP) Pulse Ox O2 Delivery O2 Flow Rate FiO2 09/24/19 08:51 98.4 61 14 162/79 (106) 99 Room Air Sp02 EP Interpretation: reviewed, normal General Appearance: no apparent distress, alert, GCS 15, non-toxic Head: normocephalic, atraumatic Eyes: bilateral eye normal inspection, bilateral eye PERRL ENT: hearing grossly normal, normal pharynx, no angioedema, normal voice Neck: full range of motion, supple/symm/no masses Respiratory: chest non-tender, lungs clear, normal breath sounds, speaking full sentences Cardiovascular #1: regular rate, rhythm, no edema Gastrointestinal: normal bowel sounds, non tender, soft, non-distended, no guarding, no rebound Rectal: deferred, other - No saddle anesthesia Musculoskeletal: normal inspection, back normal, normal range of motion, moves extm spontaneously, gait/station normal, other - Positive straight leg raise on left at approximately 50 degrees Neurologic: motor strength/tone normal, waiter/waitress tavern III-XII nml as tested, oriented x3 Psychiatric: no suicidal/homicidal ideation Skin: no rash Lymphatic: no adenopathy Medical Decision Making Diagnostic Impression: Primary Impression: Chronic pain Additional Impression: Back pain ER Course Patient presents for chronic back pain. I suspect the back pain that the patient is presenting with is non-emergent in etiology. Regarding the history, the patient denies gradual onset, trauma, fevers, night sweats, history of malignancy, pain worse at night, IVDU or refractory pain. Given these pertinent negatives in the history an emergent cause of the back pain is less likely. Also doubt cardiovascular cause of back pain such as aortic dissection or ruptured abdominal aortic aneurysm given patient with equal pulses in all 4 extremities with no diastolic murmur, or pulsatile abdominal mass. Epidural abscess considered unlikely given no fever or history of IVDU. The patient does not have history of malignancy so doubt metastasis to bone. Also doubt caudaequina syndrome since patient with no history of urinary/fecal incontinence or focal weakness or change in sensation. The patient was counseled that, though unlikely, the possibility of an emergent cause of back pain may still be present and that the patient should return immediately if symptoms persists or worsen. I believe the patient is stable for discharge to follow-up with their PMD for further workup and possible MRI. Last Vital Signs Date Time Temp Pulse Resp B/P (MAP) Pulse Ox O2 Delivery O2 Flow Rate FiO2 09/24/19 08:51 98.4 61 14 162/79 (106) 99 Room Air Disposition: HOME, SELF-CARE Condition: Stable Scripts Hydrocodone Bit/Acetaminophen 7.5-325* (NORCO 7.5-325*) 1 Each Tablet 1 TAB ORAL Q6H PRN for For Pain, #30 TAB 0 Refills Prov: Danielle Leary M.D. 09/24/19 Lidocaine Patch* (Lidoderm Patch*) 1 Each Adh..patch 1 PATCH TOPIC DAILY, #30 PATCH Patch(es) may remain in place for up to 12 hours in any 24-hour period. Prov: Danielle Leary M.D. 09/24/19 Referrals: NON PHYSICIAN (PCP) [facility] Patient Instructions: Back Pain, Adult Additional Instructions: The patient was provided with discharge instructions, notified to follow-up with a primary care doctor and or specialist in the next 24-48 hours, and to return to the ED if they have worsening of their symptoms. Please note that this report is being documented using [employer] technology. This can lead to erroneous entry secondary to incorrect interpretation by the dictating instrument. Danielle Leary M.D. Sep 24, 2019 09:00
[2019-09-24 09:14] VITALS: BP 162/79
== END 2019-09-24 09:14 | disposition home or self-care (01) ==
LOC: EMR 08:50
DX: G89.29 Other chronic pain (principal); M54.9 Dorsalgia, unspecified; I10 Essential (primary) hypertension; I25.2 Old myocardial infarction; Z86.73 Personal history of transient ischemic attack (TIA), and cerebral infarction without residual deficits; G40.909 Epilepsy, unspecified, not intractable, without status epilepticus; Z88.8 Allergy status to other drugs, medicaments and biological substances
CPT/HCPCS: 99282

== ENCOUNTER 2019-12-23 09:20 | Emergency (ER) | payer MEDICARE ==
[~2019-12-23] VITALS: Ht 160 cm; Wt 74.8 kg
[2019-12-23 09:48] VITALS: BP 156/87
--- NOTE | 2019-12-23 09:50 | NUR ---
ED Nurse Note: Patient walked in to ER from home and stated that she woke up last night with lower back pain radiating her inner legs. Patient AAO x4, VSS at this time, ER MD at bed side
[2019-12-23] MEDS ORDERED: NORCO 7.5-3251 EACH ORAL (09:52)
[2019-12-23 09:58] VITALS: BP 156/87
--- NOTE | 2019-12-23 09:59 | NUR ---
ED Nurse Note: Pt cleared by health care Provider for discharge. DC instructions/prescription was given and explained to pt and verbalized understanding of teachings. All medical deviecs such as ID band removed. Pt is AAO x4, ambulatory and left with all personal belongings.
[2019-12-23] MEDS ORDERED: HYDROcodone/Acetamin 7.5/325 tab ORAL ONE (10:00)
--- NOTE | 2019-12-23 10:05 | Emergency Room Report ---
History of Present Illness General Chief Complaint: Back Pain-No Injury Source: Patient Present Illness HPI Patient is a 69-year-old female past medical history of chronic back pain who presents to the ER complaining of back pain. Patient states that she bent over and hurt her left lower back last night. She denies any focal weakness. Denies any fever or IV drug use. She denies any rash. She denies any changes to her bowel or bladder habits. Patient states that she is usually on [place] 7.5. She has insurance paperwork for approval for this medication. Patient states that she does not want any imaging done and does not want her urine checked. She states this is a chronic problem and just wants some pain medication to relieve her pain. She states that she regularly gets checked out at an outside clinic and therefore does not want any ER work-up. She states that it is at [facility]. Allergies: Coded Allergies: TETRACYCLINE (Verified Allergy, Unknown, 05/09/08) COVID-19 Screening Contact w/high risk pt: No Experienced COVID-19 symptoms?: No COVID-19 Testing performed HOME HEALTH AIDE CAREGIVER: No Patient History Reviewed Nursing Documentation: PMH: Agreed; PSxH: Agreed Nursing Documentation-PMH Hx Cardiac Problems: No - [place] Hx Hypertension: Yes Hx Pacemaker: No Hx Asthma: Yes Hx COPD: No Hx Diabetes: No Hx Cancer: No Hx Gastrointestinal Problems: No Hx Dialysis: No Hx Neurological Problems: No Hx Cerebrovascular Accident: Yes Hx Seizures: Yes - 2019 Review of Systems All Other Systems: negative except mentioned in HPI Physical Exam Vital Signs Date Time Temp Pulse Resp B/P (MAP) Pulse Ox O2 Delivery O2 Flow Rate FiO2 12/23/19 09:38 98.1 55 15 156/87 (110) 20 Room Air Sp02 EP Interpretation: reviewed, normal General Appearance: no apparent distress, alert, GCS 15, non-toxic Head: normocephalic, atraumatic Eyes: bilateral eye normal inspection, bilateral eye PERRL ENT: hearing grossly normal, normal pharynx, no angioedema, normal voice Neck: full range of motion, supple/symm/no masses Respiratory: chest non-tender, lungs clear, normal breath sounds, speaking full sentences Cardiovascular #1: bradycardia Gastrointestinal: normal bowel sounds, non tender, soft, non-distended, no guarding, no rebound Rectal: deferred, other - no saddle anesthesia able to squeeze butt cheeks Musculoskeletal: other - Lower back pain normal range of motion Neurologic: motor strength/tone normal, tetryl wringer operator III-XII nml as tested, oriented x3, sensory intact Psychiatric: no suicidal/homicidal ideation Skin: no rash Lymphatic: no adenopathy Medical Decision Making Diagnostic Impression: Primary Impression: Back pain Additional Impression: Chronic pain ER Course I suspect the back pain that the patient is presenting with is non-emergent in etiology. Regarding the history, the patient denies gradual onset, trauma, fevers, night sweats, history of malignancy, pain worse at night, IVDU or refractory pain. Given these pertinent negatives in the history an emergent cause of the back pain is less likely. Also doubt cardiovascular cause of back pain such as aortic dissection or ruptured abdominal aortic aneurysm given patient with equal pulses in all 4 extremities with no diastolic murmur, or pulsatile abdominal mass. Epidural abscess considered unlikely given no fever or history of IVDU. The patient does not have history of malignancy so doubt metastasis to bone. Also doubt caudaequina syndrome since patient with no history of urinary/fecal incontinence or focal weakness or change in sensation. The patient was counseled that, though unlikely, the possibility of an emergent cause of back pain may still be present and that the patient should return immediately if symptoms persists or worsen. I believe the patient is stable for discharge to follow-up with their PMD for further workup and possible MRI. Last Vital Signs Date Time Temp Pulse Resp B/P (MAP) Pulse Ox O2 Delivery O2 Flow Rate FiO2 12/23/19 09:58 98.1 15 156/87 20 Room Air 12/23/19 09:38 55 Disposition: HOME, SELF-CARE Condition: Stable Scripts Hydrocodone Bit/Acetaminophen 7.5-325* (NORCO 7.5-325*) 1 Each Tablet 1 TAB ORAL Q6H PRN for For Pain, #30 TAB 0 Refills Prov: Danielle Leary M.D. 12/23/19 Referrals: NOT CHOSEN [facility]/,REFERRING (PCP) Patient Instructions: Back Pain, Adult Additional Instructions: The patient was provided with discharge instructions, notified to follow-up with a primary care doctor and or specialist in the next 24-48 hours, and to return to the ED if they have worsening of their symptoms. Please note that this report is being documented using [employer] technology. This can lead to erroneous entry secondary to incorrect interpretation by the dictating instrument. Danielle Leary M.D. Dec 23, 2019 10:05
== END 2019-12-23 09:59 | disposition home or self-care (01) ==
LOC: EMR 09:39
DX: M54.9 Dorsalgia, unspecified (principal); G89.29 Other chronic pain; I10 Essential (primary) hypertension; J45.909 Unspecified asthma, uncomplicated; I25.2 Old myocardial infarction; Z88.0 Allergy status to penicillin; Z86.73 Personal history of transient ischemic attack (TIA), and cerebral infarction without residual deficits
CPT/HCPCS: 99282

== ENCOUNTER 2020-02-10 16:09 | Emergency (ER) | payer MEDICARE ==
[~2020-02-10] VITALS: Ht 160 cm; Wt 74.8 kg
[2020-02-10 16:29] VITALS: BP 146/88
[2020-02-10] MEDS ORDERED: Ketorolac 30mg Inj IM ONE (16:30)
[2020-02-10] MEDS ORDERED: Methocarbamol 750mg tab ORAL ONE (16:30)
--- NOTE | 2020-02-10 16:30 | NUR ---
Nurse Note: Pt walked in c/o lower back pain for unk time. Pt stated she has chronic lower back pain; no different pain expressed. Pt stated she no change in pain, lifestyle, bowel movement. Denies trauma; able to ambulate without assistance, touch toes however with pain.
--- NOTE | 2020-02-10 16:49 | Emergency Room Report ---
History of Present Illness General Chief Complaint: Pain Source: Patient Present Illness HPI 69-year-old female with history of chronic low back pain here complaining of worsening pain after bending down trying to tie her shoes yesterday. Denies complaints currently with radiation to left leg. Denies any urinary bowel incontinence. Has not yet established pain management. Denies any urinary frequency urgency. Denies any pain radiation to suprapubic area. Denies hematuria. Denies chest pain, shortness of breath, pleuritic chest pain, no other associate symptoms. 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 COVID-19 Screening: Negative COVID-19 COVID-19 Testing Source: clinic Patient History Past Medical History: see triage record Past Surgical History: none Pertinent Family History: none Reviewed Nursing Documentation: PMH: Agreed; PSxH: Agreed Nursing Documentation-PMH Hx Cardiac Problems: No - [place] Hx Hypertension: Yes Hx Pacemaker: No Hx Asthma: Yes Hx COPD: No Hx Diabetes: No Hx Cancer: No Hx Gastrointestinal Problems: No Hx Dialysis: No Hx Neurological Problems: No Hx Cerebrovascular Accident: Yes Hx Seizures: Yes - 2018 Review of Systems All Other Systems: negative except mentioned in HPI Physical Exam Vital Signs Date Time Temp Pulse Resp B/P (MAP) Pulse Ox O2 Delivery O2 Flow Rate FiO2 02/10/20 16:18 98.4 78 19 146/88 (107) 98 Room Air Sp02 EP Interpretation: reviewed, normal General Appearance: no apparent distress, alert, GCS 15, non-toxic Head: normocephalic, atraumatic Eyes: bilateral eye normal inspection, bilateral eye PERRL ENT: hearing grossly normal, no angioedema, normal voice Neck: full range of motion, supple/symm/no masses Respiratory: no respiratory distress, no retraction, no accessory muscle use Cardiovascular #1: regular rate, rhythm Gastrointestinal: soft Rectal: deferred Musculoskeletal: back normal, no calf tenderness, gait/station normal, no lower extremity edema, non-tender Neurologic: alert, motor strength/tone normal, oriented x3, sensory intact, responsive, speech normal Psychiatric: judgement/insight normal, memory normal, mood/affect normal, no suicidal/homicidal ideation Skin: no rash Lymphatic: no adenopathy Medical Decision Making PA Attestation All diagnoses and treatment plans were reviewed and discussed with my supervising physician Dr. Parekh Diagnostic Impression: Primary Impression: Lumbar strain ER Course 69-year-old female with history of chronic low back pain here complaining of worsening pain after bending down trying to tie her shoes yesterday. Denies complaints currently with radiation to left leg. Denies any urinary bowel incontinence. Has not yet established pain management. Denies any urinary frequency urgency. Denies any pain radiation to suprapubic area. Denies hematuria. Denies chest pain, shortness of breath, pleuritic chest pain, no other associate symptoms. Ddx considered but are not limited to: Lumbar spine sprain, strain, fracture, contusion, neuropathy Vital signs: are WNL, pt. is afebrile H&PE are most consistent with: lumbar strain ORDERS: No imaging needed this is an ongoing pain which exacerbated with Done of spasms of back muscles. Patient agrees with no imaging. Robaxin, ibuprofen, lidocaine patch ER intervention: Toradol IM, Robaxin, lidocaine patch DISCHARGE: At this time pt. is stable for d/c to home. Will provide printed patient care instructions, and any necessary prescriptions. Care plan and follow up instructions have been discussed with the patient prior to discharge. Take medication as directed, follow-up with primary care provider, if worsening symptoms return to the emergency room Last Vital Signs Date Time Temp Pulse Resp B/P (MAP) Pulse Ox O2 Delivery O2 Flow Rate FiO2 02/10/20 16:29 98.4 78 19 146/88 98 Room Air Disposition: HOME, SELF-CARE Condition: Stable Referrals: NON PHYSICIAN (PCP) Patient Instructions: Lumbosacral Strain Additional Instructions: Take medication as directed, follow primary care provider, if worsening symptoms return to the emergency room also talk with your pain management Moni Broderick Feb 10, 2020 16:49
[2020-02-10] MEDS ORDERED: ROBAXIN-500MG ORAL (16:50)
[2020-02-10] MEDS ORDERED: IBU800 MG PO (16:50)
[2020-02-10] MEDS ORDERED: LIDODERM700 M1 TOPIC (16:50)
[2020-02-10 16:58] VITALS: BP 146/88
--- NOTE | 2020-02-10 16:58 | NUR ---
ED Nurse Note: Pt cleared by health care Provider for discharge. DC instructions/prescription was given and explained to pt and verbalized understanding of teachings. Instructed pt to follow up wiht PCP within 3-7 days. All medical deviecs such as ID band removed. Pt is AAO x4, ambulatory and left with all personal belongings.
== END 2020-02-10 16:58 | disposition home or self-care (01) ==
LOC: EMR 16:33
DX: S39.012A Strain of muscle, fascia and tendon of lower back, initial encounter (principal); X50.1XXA Overexertion from prolonged static or awkward postures, initial encounter; Y92.9 Unspecified place or not applicable; I10 Essential (primary) hypertension; J45.909 Unspecified asthma, uncomplicated; I25.2 Old myocardial infarction; Z88.1 Allergy status to other antibiotic agents; Z86.73 Personal history of transient ischemic attack (TIA), and cerebral infarction without residual deficits
CPT/HCPCS: 96372; 99283; J1885

== ENCOUNTER → 2020-05-04 | Emergency (ER) | payer MEDICARE ==
[~2020-05-04] VITALS: Ht 160 cm; Wt 74.8 kg
[~2020-05-04] MED LIST changes: +HYDROCODON-ACE1 EA16 ORAL; +IBU800 MG PO; +OXYCODONE HCL10 MG ORAL; +ROBAXIN-500MG ORAL
[2020-05-04 11:09] VITALS: BP 170/91
[2020-05-04 11:25] VITALS: BP 164/89
--- NOTE | 2020-05-04 11:30 | NUR ---
pt came in via private vehicle after her pain on the right side would not get better. 8/10 on the right wrist. pt requesting pain medication requested
--- NOTE | 2020-05-04 11:43 | NUR ---
pt given discharge instruction along with prescriptions and pt walked out of ED
--- NOTE | 2020-05-04 12:07 | Emergency Room Report ---
History of Present Illness General Chief Complaint: Lower Back Pain or Injury Source: Patient Present Illness HPI 69-year-old female presents with back pain. History of sciatica and pinched nerve. States she slipped and aggravated her back a few days ago. Pain is throbbing, 10 out of 10, radiating down the left leg. Denies any bowel or bladder incontinence. Denies any leg or motor weakness. No other aggravating relieving factors. No other associated symptoms Allergies: Coded Allergies: TETRACYCLINE (Verified Allergy, Unknown, 05/09/08) COVID-19 Screening Contact w/high risk pt: No Experienced COVID-19 symptoms?: No COVID-19 Testing performed REHABILITATION SERVICES AIDE: No Patient History Past Medical History: HTN, [place], CVA/TIA Pertinent Family History: none Social History: Denies: smoking, alcohol use, drug use Last Menstrual Period: na Now: No Immunizations: UTD Reviewed Nursing Documentation: PMH: Agreed; PSxH: Agreed Nursing Documentation-PMH Past Medical History: No History, Except For Hx Cardiac Problems: Yes - [place] Hx Hypertension: Yes Hx Pacemaker: No Hx Asthma: Yes Hx COPD: No Hx Diabetes: No Hx Cancer: No Hx Gastrointestinal Problems: No Hx Dialysis: No Hx Neurological Problems: No Hx Cerebrovascular Accident: Yes Hx Seizures: Yes - 2019 Review of Systems All Other Systems: negative except mentioned in HPI Physical Exam Vital Signs Date Time Temp Pulse Resp B/P (MAP) Pulse Ox O2 Delivery O2 Flow Rate FiO2 05/04/20 11:09 98.1 68 18 170/91 (117) 98 Room Air Sp02 EP Interpretation: reviewed, normal General Appearance: no apparent distress, alert, GCS 15, non-toxic Head: normocephalic, atraumatic Eyes: bilateral eye normal inspection, bilateral eye PERRL ENT: hearing grossly normal, normal pharynx, no angioedema, normal voice Neck: full range of motion, supple/symm/no masses Respiratory: chest non-tender, lungs clear, normal breath sounds, speaking full sentences Cardiovascular #1: regular rate, rhythm, no edema Cardiovascular #2: 2+ carotid (R), 2+ carotid (L), 2+ radial (R), 2+ radial (L), 2+ dorsalis pedis (R), 2+ dorsalis pedis (L) Gastrointestinal: normal bowel sounds, non tender, soft, non-distended, no guarding, no rebound Rectal: deferred Genitourinary: normal inspection, no CVA tenderness, no vertebral tenderness Musculoskeletal: back normal, normal range of motion, gait/station normal, tender - paraspinal lumbar tenderness Neurologic: alert, motor strength/tone normal, oriented x3, sensory intact, responsive, speech normal Psychiatric: judgement/insight normal, memory normal, mood/affect normal, no suicidal/homicidal ideation Reflexes: 3+ bicep (R), 3+ bicep (L), 3+ tricep (R), 3+ tricep (L), 3+ knee (R), 3+ knee (L) Lymphatic: no adenopathy Medical Decision Making Diagnostic Impression: Primary Impression: Exacerbation of chronic back pain ER Course Hospital Course 69-year-old female presents with back pain. History of sciatica Differential diagnoses include: pyelonephritis, kidney stone, muscle strain, Lspine fracture Clinical course Patient placed on stretcher. After initial history is middle-aged female in no acute distress. There is paraspinal lumbar tenderness. No step-offs or brian tebral midline pain. Straight leg raise negative. No sensory deficits or motor strength weakness. Cures shows multiple narcotic prescriptions last in December. Patient is stating that her insurance has authorized her to receive a 7-day supply of [place]. I agreed to provide her with a 3-day supply as this is standard emergency room procedure for a controlled substance. Patient declined any medication here or other work-up. I will provide Ortho referrals Diagnosis - exacerbation of chronic back pain Stable and discharged to home with prescription for [place], Lidoderm. Followup with PMD. Return to ED if symptoms recur or worsen Last Vital Signs Date Time Temp Pulse Resp B/P (MAP) Pulse Ox O2 Delivery O2 Flow Rate FiO2 05/04/20 11:25 97.7 84 16 164/89 98 Room Air Status: improved Disposition: HOME, SELF-CARE Condition: Stable Scripts Lidocaine Patch* (Lidoderm Patch*) 1 Each Adh..patch 1 PATCH TOPIC DAILY, #14 PATCH 0 Refills Patch(es) may remain in place for up to 12 hours in any 24-hour period. Prov: Fran Salmon MD 05/04/20 Hydrocodone/Acetaminophen 7.5-325* (HYDROCODON-ACETAMINOPH 7.5-325*) 1 Each Tablet 1 TAB ORAL Q8H, #12 TAB 0 Refills Prov: Fran Salmon MD 05/04/20 Referrals: [facility] Open 24 hour /7 days a week by Appointment Only [address] [facility] [address] Patient Instructions: Sciatica With Rehab-[facility] Fran Salmon MD May 04, 2020 12:07
== END | disposition home or self-care (01) ==
LOC: EMR 11:28
DX: M54.9 Dorsalgia, unspecified (principal); G89.29 Other chronic pain; Z88.8 Allergy status to other drugs, medicaments and biological substances; I10 Essential (primary) hypertension; Z86.73 Personal history of transient ischemic attack (TIA), and cerebral infarction without residual deficits; I25.2 Old myocardial infarction
CPT/HCPCS: 99282